=== PATIENT | male | born 1995 | race Hispanic/Latino ===

== ENCOUNTER 2017-07-03 11:10 | Emergency (ER) | payer OTHER ==
[~2017-07-03] VITALS: Ht 167.6 cm; Wt 83.9 kg
[2017-07-03] MEDS ORDERED: IBUPROFEN200 MG PO (11:36)
[2017-07-03] MEDS ORDERED: METHYLPREDNISOLO4 M1 PO (12:52)
[2017-07-03] MEDS ORDERED: BACLOFEN10 MG PO (12:52)
[2017-07-03] MEDS ORDERED: NORCO 10-325 T1 EACH PO (12:52)
== END 2017-07-03 13:15 | disposition home or self-care (01) ==
LOC: ED 11:10
DX: S39.012A Strain of muscle, fascia and tendon of lower back, initial encounter (principal); W11.XXXA Fall on and from ladder, initial encounter
CPT/HCPCS: 71045; 72128; 72131; 72170; 80053; 85025; 85610; 85730; 96374; 96375; 99284; J1170; J2060; J2405

== ENCOUNTER 2018-01-13 12:41 | Emergency (ER) | payer OTHER ==
[~2018-01-13] VITALS: Ht 167.6 cm; Wt 83.9 kg
--- OUTSIDE RECORDS SUMMARY | ~2018-01-13 | XMS | Clinical Summary ---
Demographics + + + | Address | [address] | | | [place] [address] | + + + | Home Phone | | + + + | Preferred Language | Unknown | + + + | Marital Status | Single | + + + | Latter Day Affiliation | Unknown | + + + | Race | Unknown | + + + | Ethnic Group | Unknown | + + + Author + + + | Author | [facility] | | | and [place] | + + + | Organization | [facility] | | | and [place] | + + + | Address | Unknown | + + + | Phone | Unavailable | + + + Support + + +---------+ + | Name | Relationship | Address | Phone | + + +---------+ + | Parul Macario | ECON | Unknown | | + + +---------+ + Care Team Providers + +------+ + | Care Relief Captain Name | Role | Phone | + +------+ + | No, Physician | PP | Unavailable | + +------+ + Allergies No Known Allergies Current Medications + + +--------+---------+------+------+-------+ | Prescription | Sig. | Disp. | Refills | Star | End | Statu | | | | | | t | Date | s | | | | | | Date | | | + + +--------+---------+------+------+-------+ | ibuprofen (ADVIL, | Take 200 mg by mouth | | | | | Activ | | MOTRIN) 200 mg | every 6 hours as | | | | | e | | tablet | needed for Pain. | | | | | | + + +--------+---------+------+------+-------+ | | Take 1-2 tablets by | 20 | 0 | 09/1 | | Activ | | oxyCODONE-acetaminop | mouth every 6 hours | tablet | | 7/20 | | e | | hen (PERCOCET) 5-325 | as needed for Pain. | | | 18 | | | | mg per tablet | | | | | | | + + +--------+---------+------+------+-------+ | ondansetron | Take 1 tablet by | 10 | 0 | 09/1 | | Activ | | (ZOFRAN ODT) 4 mg | mouth every 8 hours | tablet | | 7/20 | | e | | disintegrating | as needed for | | | 18 | | | | tablet | Nausea. | | | | | | + + +--------+---------+------+------+-------+ | naproxen | Take 1 tablet by | 14 | 0 | 09/1 | 09/2 | Expir | | (NAPROSYN) 500 mg | mouth 2 times daily | tablet | | 7/20 | 4/20 | ed | | tablet | (with breakfast & | | | 18 | 18 | | | | dinner) for 7 days. | | | | | | + + +--------+---------+------+------+-------+ Active Problems No known active problems Encounters +--------+ + + + + | Date | Type | Specialty | Care Team | Description | +--------+ + + + + | 12/24/ | Emergency | | Don Foster MD | Kidney stone | | 2017 | | | | (Primary Dx) | +--------+ + + + + from Last 3 Months Social History + +-------+ +--------+------+ | Tobacco Use | Types | Packs/Day | Years | Date | | | | | Used | | + +-------+ +--------+------+ | Current Some Day | | | | | | Smoker | | | | | + +-------+ +--------+------+ + +---+---+---+ | Smokeless Tobacco: | | | | | Never Used | | | | + +---+---+---+ + + + | Sex Assigned at | Date Recorded | | | | + + + | Not on file | | + + + Last Filed Vital Signs + + + + | Vital Sign | Reading | Time Taken | + + + + | Blood Pressure | 119/66 | 12/24/2017 1335 PDT | + + + + | Pulse | 76 | 12/24/20171334 PDT | + + + + | Temperature | 35.8 C (96.5 F) | 12/24/20171131 PDT | + + + + | Respiratory Rate | 18 | 12/24/20171334 PDT | + + + + | Oxygen Saturation | 96% | 12/24/20171334 PDT | + + + + | Inhaled Oxygen | - | - | | Concentration | | | + + + + | Weight | 100.1 kg (220 lb | 12/24/20171131 PDT | | | 10.9 oz) | | + + + + | Height | 170.2 cm (5' 7") | 12/24/20171131 PDT | + + + + | Body Mass Index | 34.56 | 12/24/20171131 PDT | + + + + Plan of Treatment + + + + + | Health Maintenance | Due Date | Last Done | Comments | + + + + + | Well Child Check | | | | | | 0 | | | + + + + + | Vaccine: HPV (1 of 3 | | | | | - Male 3-dose | 8 | | | | series) | | | | + + + + + | Vaccine: | | | | | Dtap/Tdap/Td (1 - | 6 | | | | Tdap) | | | | + + + + + | Vaccine: | | | | | Pneumococcal 19-64 | 6 | | | | (PPSV23 only) Medium | | | | | Risk (1 of 1 - | | | | | PPSV23) | | | | + + + + + | Vaccine: Influenza | | | | | (#1) | 8 | | | + + + + + Procedures + +--------+ + + + | Procedure Name | Priori | Date/Time | Associated Diagnosis | Comments | | | ty | | | | + +--------+ + + + | CT ABDOMEN PELVIS W | STAT | 12/24/2017 | | Results for this | | CONTRAST | | 1244 PDT | | procedure are in the | | | | | | results section. | + +--------+ + + + from Last [address] Abdomen Pelvis w Contrast (12/24/2017 1244) + + + | Narrative | Performed At | + + + | ENHANCED CT ABDOMEN AND PELVIS 12/24/2017 12:25 PM CLINICAL | [facility] | | HISTORY: Right back and abdominal pain COMPARISON: None | | | TECHNIQUE: Axial images are performed through the abdomen and | | | pelvis following the uneventful intravenous administration of 90 mL | | | Omnipaque 350 contrast. Coronal and sagittal reformations | | | are also performed. ABDOMEN FINDINGS: Imaged lung bases and | | | mediastinum are unremarkable. There is generalized hypoattenuation | | | of the liver, consistent with fatty infiltration. The gallbladder, | | | spleen, pancreas, and adrenal glands are unremarkable. There is a | | | 4 mm calculus in the proximal to mid right ureter, with mild | | | hydronephrosis. There is a 2.5 mm calculus superiorly in the right | | | renal sinus also. No left nephroureterolithiasis or | | | hydroureteronephrosis is evident. No renal parenchymal abnormality | | | is visible, aside from slightly delayed right renal parenchymal | | | enhancement relative to the left. The stomach, bowel and appendix | | | are unremarkable without evidence of obstruction or visible | | | inflammation. No free air, ascites, pathologic lymph node | | | enlargement or hernia is evident. The abdominal vasculature is | | | unremarkable. Bones and soft tissues are unremarkable. PELVIS | | | FINDINGS: The bladder, prostate and seminal vesicles are | | | unremarkable. No free air, free fluid, pathologic lymph node | | | enlargement, or hernia is evident. Minimal convexity of the | | | lateral junctions of the femoral heads and necks may reflect | | | femoroacetabular impingement. Bones and soft tissues are otherwise | | | unremarkable. IMPRESSION - 1. 4 MM CALCULUS IN THE | | | PROXIMAL TO MID RIGHT URETER WITH MILD HYDRONEPHROSIS AND DELAYED | | | RIGHT RENAL ENHANCEMENT. AN ADDITIONAL SMALL RIGHT RENAL CALCULUS | | | IS PRESENT. 2. HYPOATTENUATION OF THE LIVER CONSISTENT WITH | | | FATTY INFILTRATION. Images were provided for interpretation on | | | December 24, 2017 at 1245 hours. Results were finalized at 1305 | | | hours. Dictated and Signed by: Tonio Liao MD Electronically | | | signed: 12/24/2017 1:02 PM | | + + + + + | Procedure Note | + + | Aram, Rad Results In - 12/24/[address] ABDOMEN AND PELVIS 12/24/2017 | | 12:25 PM CLINICAL HISTORY: Right back and abdominal pain COMPARISON: None | | TECHNIQUE: Axial images are performed through the abdomen and pelvis followingthe | | uneventful intravenous administration of 90 mL Omnipaque 350 contrast. Coronal and | | sagittal reformations are also performed. ABDOMEN FINDINGS: Imaged lung bases and | | mediastinum are unremarkable. There isgeneralized hypoattenuation of the liver, | | consistent with fatty infiltration. The gallbladder, spleen, pancreas, and adrenal | | glands are unremarkable. Thereis a 4 mm calculus in the proximal to mid right ureter, | | with mildhydronephrosis. There is a 2.5 mm calculus superiorly in the right renal | | sinusalso. No left nephroureterolithiasis or hydroureteronephrosis is evident. Norenal | | parenchymal abnormality is visible, aside from slightly delayed rightrenal parenchymal | | enhancement relative to the left.The stomach, bowel and appendix are unremarkable | | without evidence of obstructionor visible inflammation. No free air, ascites, | | pathologic lymph nodeenlargement or hernia is evident. The abdominal vasculature is | | unremarkable. Bones and soft tissues are unremarkable. PELVIS FINDINGS: The bladder, | | prostate and seminal vesicles are unremarkable. No free air, free fluid, pathologic | | lymph node enlargement, or hernia isevident. Minimal convexity of the lateral junctions | | of the femoral heads andnecks may reflect femoroacetabular impingement. Bones and soft | | tissues areotherwise unremarkable. IMPRESSION - 1. 4 MM CALCULUS IN THE PROXIMAL TO | | MID RIGHT URETER WITH MILD HYDRONEPHROSISAND DELAYED RIGHT RENAL ENHANCEMENT. AN | | ADDITIONAL SMALL RIGHT RENAL CALCULUSIS PRESENT.2. HYPOATTENUATION OF THE LIVER | | CONSISTENT WITH FATTY INFILTRATION.Images were provided for interpretation on December at 1245 hours. Results were finalized at 1305 hours.Dictated and Signed by: | | Tonio Liao MD Electronically signed: 12/24/2017 1:02 PM | |PELVIS FINDINGS: The bladder, prostate and seminal vesicles are unremarkable. | |No free air, free fluid, pathologic lymph node enlargement, or hernia is | |evident. Minimal convexity of the lateral junctions of the femoral heads and | |necks may reflect femoroacetabular impingement. Bones and soft tissues are | |otherwise unremarkable. | | | |IMPRESSION - | |1. 4 MM CALCULUS IN THE PROXIMAL TO MID RIGHT URETER WITH MILD HYDRONEPHROSIS | |AND DELAYED RIGHT RENAL ENHANCEMENT. AN ADDITIONAL SMALL RIGHT RENAL CALCULUS | |IS PRESENT. | | | |2. HYPOATTENUATION OF THE LIVER CONSISTENT WITH FATTY INFILTRATION. | | | |Images were provided for interpretation on December 24, 2017 at 1245 hours. | |Results were finalized at 1305 hours. | | | |Dictated and Signed by: Tonio Liao MD | | Electronically signed: 12/24/2017 1:02 PM | + + + +---------+ + + | Performing | Address | City/State/Zipcode | Phone Number | | Organization | | | | + +---------+ + + | [facility] | | | | + +---------+ + + from Last 3 Months Insurance + +--------+ +--------+ +---------+ | Payer | Benefi | Subscriber | Type | Phone | Address | | | t Plan | ID | | | | | | / | | | | | | | Group | | | | | + +--------+ +--------+ +---------+ | [employer] | MOD[employer] | [id number] | Medica | [phone] | | | MEDICAID HMO | HEALTH | | id | [id number] | | | | [place] | | | | | | [place] | | | | | + +--------+ +--------+ +---------+ + +--------+ +--------+ + + | Guarantor Name | Accoun | Relation to | Date | Phone | Billing Address | | | t Type | Patient | of | | | | | | | | | | + +--------+ +--------+ + + | SARANYA SOOD | Person | Self | [birth year] | Home: | [address] | | [place] | scooter/Harsha | | 1995 | [phone] | [place] | | | [place] | | | [phone] | [phone] | + +--------+ +--------+ + +
--- OUTSIDE RECORDS SUMMARY | ~2018-01-13 | XMS | Clinical Summary ---
Demographics + + + | Address | [address] | | | [place] [address] | + + + | Home Phone | | + + + | Preferred Language | Unknown | + + + | Marital Status | Single | + + + | Islam Affiliation | Unknown | + + + | Race | Unknown | + + + | Ethnic Group | Unknown | + + + Author + + + | Author | [facility] | | | and [place] | + + + | Organization | [facility] | | | and [...] Team Providers + +------+ + | Care Wastewater Treatment Supervisor Name | Role | Phone | + [...] | [employer] | MOD[employer] | [id number] | Medica | [phone] | | MEDICAID HMO | HEALTH [...] [place] | scooter/Harsha | | 1995 | [phone] | [place] | | | [place] | | | [phone] | [phone] | + +--------+ +--------+ + +
--- OUTSIDE RECORDS SUMMARY | ~2018-01-13 | XMS | Encounter Summary ---
Demographics + + + | Address | [address] | | | [place] [address] | + + + | Home Phone | | + + + | Preferred Language | Unknown | + + + | Marital Status | Single | + + + | Church Affiliation | Unknown | + + + | Race | Unknown | + + + | Ethnic Group | Unknown | + + + Author + + + | Author | [facility] | | | and [place] | + + + | Organization | [facility] | | | and [place] | + + + | Address | Unknown | + + + | Phone | Unavailable | + + + Support + + +---------+ + | Name | Relationship | Address | Phone | + + +---------+ + | RenaldoParul | ECON | Unknown | | + + +---------+ + Care Team Providers + +------+ + | Care Room Service Supervisor Name | Role | Phone | + +------+ + | No, Physician | PCP | Unavailable | + +------+ + Reason for Visit + + + | Reason | Comments | + + + | Abdominal Pain | | + + + | Nausea | | + + + | Emesis | | + + + Encounter Details +--------+ + + + + | Date | Type | Department | Care Team | Description | +--------+ + + + + | 12/24/ | Emergency | [facility] | Don Foster MD | Kidney stone | | 2018 | | [facility] | [address] | (Primary Dx) | | | | CENTER [address] | [place] | | | | | [place] | [phone] | | | | | [phone] | | | | | | [phone] | | | +--------+ + + + + Social History + +-------+ +--------+------+ | Tobacco [...] on file | | + + + as of this encounter Last Filed Vital Signs + + + + | Vital Sign | Reading | Time Taken | + + + + | Blood Pressure | 119/66 | 12/24/2017 1335 PDT | + + + + | Pulse | 76 | 12/24/2017 1335 PDT | + + [...] | Body Mass Index | 34.56 | 12/24/2017 1132 PDT | + + + + in this encounter Discharge Instructions Don Foster MD - 12/24/2017Pain medication as needed Anti-inflammatory as prescribed Nausea medication as needed Return for uncontrolled pain, uncontrolled vomiting, fever, other new complaintsin this enc ounter Medications at Time of Discharge + + +--------+---------+ + + | Medication | Sig. | Disp. | Refills | Start | End Date | | | | | | Date | | + + +--------+---------+ + + | ibuprofen (ADVIL, | Take 200 mg by mouth | | | | | | MOTRIN) 200 mg | every 6 hours as | | | | | | tablet | needed for Pain. | | | | | + + +--------+---------+ + + | ondansetron | Take 1 tablet by | 10 | 0 | 12/25/19 | | | (ZOFRAN ODT) 4 mg | mouth every 8 hours | tablet | | 18 | | | disintegrating | as needed for | | | | | | tablet | Nausea. | | | | | + + +--------+---------+ + + | | Take 1-2 tablets by | 20 | 0 | 12/25/19 | | | oxyCODONE-acetaminop | mouth every 6 hours | tablet | | 18 | | | hen (PERCOCET) 5-325 | as needed for Pain. | | | | | | mg per tablet | | | | | | + + +--------+---------+ + + | naproxen | Take 1 tablet by | 14 | 0 | 12/25/19 | | | (NAPROSYN) 500 mg | mouth 2 times daily | tablet | | 18 | 8 | | tablet | (with breakfast & | | | | | | | dinner) for 7 days. | | | | | + + +--------+---------+ + + as of this encounter Plan of Treatment Not on fileas of this encounter Procedures + +--------+ + + + | [...] section. | + +--------+ + + + in this encounter Results CT Abdomen Pelvis w Contrast (12/24/2017 [...] INFILTRATION.Images were provided for interpretation on December | 2017 at 1245 hours. Results were finalized [...] | | | + +---------+ + + in this encounter Visit Diagnoses + + | Diagnosis | + + | Kidney stone - Primary | + + | Calculus of kidney | + + Administered Medications + +--------+ +--------+------+------+ | Medication Order | MAR | Action | Dose | Rate | Site | | | Action | Date | | | | + +--------+ +--------+------+------+ | HYDROmorphone (DILAUDID) | Given | | 0.5 mg | | | | injection 0.5 mg 0.5 mg, | | 8 12:11 | | | | | Intravenous, ONCE, Sun12/24/17 at | | PDT | | | | | 1155, For 1 dose | | | | | | + +--------+ +--------+------+------+ +---+---+ | | | +---+---+ + +-------+ +--------+---+---+ | iohexol (OMNIPAQUE 350) 350 | Given | | 90 mLs | | | | mg/mL injection 90 mL 90 mL, | | 8 12:46 | | | | | Intravenous, ONCE PRN, Other, | | PDT | | | | | Starting Sun12/24/17 at 1245, For | | | | | | | 1 dose, Cat Scanner | | | | | | + +-------+ +--------+---+---+ +---+---+ | | | +---+---+ + +-------+ +-------+---+---+ | ketorolac (TORADOL) injection | Given | | 30 mg | | | | 30 mg 30 mg, Intravenous, ONCE, | | 8 13:22 | | | | | 12/24/17 at 1315, For 1 dose | | PDT | | | | + +-------+ +-------+---+---+ +---+---+ | | | +---+---+ + +-------+ +------+---+---+ | ondansetron (ZOFRAN) injection | Given | | 4 mg | | | | 4 mg 4 mg, Intravenous, ONCE, | | 8 12:11 | | | | | 12/24/17 at 1155, For 1 dose | | PDT | | | | + +-------+ +------+---+---+ +---+---+ | | | +---+---+ + +---------+ +--------+-------+---+ | sodium chloride 0.9% (NS) bolus | New Bag | | 1,000 | 1000 | | | 1,000 mL 1,000 mL, Intravenous, | | 8 12:11 | mLs | mL/hr | | | Administer over 1 Hours, ONCE, | | PDT | | | | | 12/24/17 at 1155, For 1 dose | | | | | | + +---------+ +--------+-------+---+ +---+---+ | | | +---+---+ in this encounter
--- OUTSIDE RECORDS SUMMARY | ~2018-01-13 | XMS | Encounter Summary ---
Demographics + + + | Address | [address] | | | [place] [address] | + + + | Home Phone | | + + + | Preferred Language | Unknown | + + + | Marital Status | Single | + + + | Religion Affiliation | Unknown | + + + | Race | Unknown | + + + | Ethnic Group | Unknown | + + + Author + + + | Author | [facility] | | | and [place] | + + + | Organization | [facility] | | | and [...] Team Providers + +------+ + | Care Junior Accountant Bookkeeper Name | Role | Phone | + [...] + | 12/24/ | Emergency | [facility] | Don Foster MD | Kidney stone | | 2018 | | [facility] | [address] | (Primary Dx) | | | | CENTER [address] | [place] | | | | | [place] | [id number] | | | | | [phone] | | | | | | [phone] | | | +--------+ + + + [...]
[~2018-01-13 12:41] MED LIST: BACLOFEN10 MG PO; IBUPROFEN200 MG PO; METHYLPREDNISOLO4 M1 PO; NORCO 10-325 T1 EACH PO
--- OUTSIDE RECORDS SUMMARY | 2018-01-13 12:46 | XMS ---
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 - 2 Visits in 30 Days CARE PROVIDERS There are no care providers on record at this time. David has no Care Guidelines for this patient. [facility]12 MO.) [facility] [address] [facility] TOTAL 3 NOTE: Visits indicate total known visits. ED/C VISIT TRACKING (12 MO.) 01/13/2018 12:[address] [facility] [facility] [place] TYPE: Emergency COMPLAINT: - FLANK PAIN 12/24/2017 09:[address] [facility] [place] TYPE: Emergency DIAGNOSES: - poss gallstones - Calculus of kidney 07[facility]03/2017 11:[facility] [place] [facility] COMPLAINT: - HEAD PAIN/BACK PAIN/FALL DIAGNOSES: - Strain of muscle, fascia and tendon of lower back, initial encounter - Low back pain - Fall on and from ladder, initial encounter INPATIENT VISIT TRACKING (12 MO.) No inpatient visits to display in this time frame [email or web address]
[2018-01-13] MEDS ORDERED: FLOMAX0.4 MG PO (15:19)
[2018-01-13] MEDS ORDERED: NORCO 5-325 TA1 EACH PO (15:19)
[2018-01-13] MEDS ORDERED: ONDANSETRON ODT8 MG PO (15:19)
== END 2018-01-13 15:48 | disposition home or self-care (01) ==
LOC: ED 12:41
DX: N20.1 Calculus of ureter (principal); F17.200 Nicotine dependence, unspecified, uncomplicated
CPT/HCPCS: 80053; 81001; 85025; 96361; 96374; 96375; 99284; J1885; J2405; J7030